=== PATIENT | male | born 1940 | race Caucasian/White ===

== ENCOUNTER 2016-08-28 10:40 | Day surgery (SDC) | payer MEDICARE, BC ==
[~2016-08-28 10:40] MED LIST: GENTAMICIN SULFATE 80 MG in DEXTROSE 5 % IN WATER 100 ML IV PRN; RINGERS SOLUTION,LACTATED 1,000 ML IV PRN; metroNIDAZOLE/SODIUM CHLORIDE 500 MG/100 ML BAG IV PRN
--- OUTSIDE RECORDS SUMMARY | 2016-08-28 10:47 | XMS REPORT | Summary of Care ---
:1940 Author Organization [facility] Care Team Providers Name Role Phone Anna Candelaria Primary Care Physician Encounter Date(s): 07/24/16 - 07/24/[address] [id number] [place] Discharge Disposition: Discharged to Home or Self Care Attending Physician: Anna Candelaria DNP Admitting Physician: Anna Candelaria DNP Vital Signs No data available for this section Problem List Condition Effective Dates Status Health Status Informant Hypertension(Confirmed) Active Colonic Polyps(Confirmed) Active Hyperparathyroidism(Confirmed) Active Hypercholesterolemia(Confirmed) Active Allergies, Adverse Reactions, Alerts No Known Medication Allergies Medications ALPRAZolam 0.5 mg oral tablet 1 tab(s), Oral, BID, PRN for anxiety, 5 Refill(s) Start Date: 07/13/13 Stop Date: 08/16/13 Status: DiscontinuedALPRAZolam 0.5 mg oral tablet 1 tab(s), Oral, BID, PRN for anxiety, X 30 days, # 60 tab(s), 0 Refill(s), Start Date: 06/15/14 9:14:33 CDT, 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) Start Date: 06/15/14 Stop Date: 07/13/14 Status: CompletedALPRAZolam 0.5 mg oral tablet 1 tab(s), Oral, BID, PRN for anxiety, # 60 tab(s), 1 Refill(s), Start Date: 08/22 9:41:46 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, 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) Start Date: 02/14/14 Stop Date: 04/11/14 Status: CompletedALPRAZolam 0.5 mg oral tablet 1 tab(s), Oral, BID, PRN for anxiety, # 60 tab(s), 0 Refill(s), Start Date: 06/22 10:16:33 CDT, 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) Start Date: 07/13/14 Stop Date: 07/24/14 Status: DiscontinuedALPRAZolam 0.5 mg oral tablet 1 tab(s), Oral, BID, PRN for anxiety, X 30 days, # 60 tab(s), 5 Refill(s), Start Date: 07/26/15 7:22:37 CDT, 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) Start Date: 07/26/15 Stop Date: 01/28/16 Status: CompletedALPRAZolam 0.5 mg oral tablet 1 tab(s), Oral, BID, PRN for anxiety, X 30 days, # 60 tab(s), 5 Refill(s), Start Date: 02/07/15 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, 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) Start Date: 02/07/15 Stop Date: 07/26/15 Status: CompletedALPRAZolam 0.5 mg oral tablet 1 tab(s), Oral, BID, PRN for anxiety, # 60 tab(s), 1 Refill(s), 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) Start Date: 08/16/13 Stop Date: 10/17/13 Status: CompletedALPRAZolam 0.5 mg oral tablet 1 tab(s), Oral, BID, PRN for anxiety, # 60 tab(s), 1 Refill(s), Start Date: 10/22 9:31:27 CDT, 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) Start Date: 10/17/13 Stop Date: 12/14/13 Status: CompletedALPRAZolam 0.5 mg oral tablet 1 tab(s), Oral, BID, PRN for anxiety, # 60 tab(s), 5 Refill(s), 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, 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) Start Date: 01/28/16 Stop Date: 07/26/16 Status: OrderedALPRAZolam 0.5 mg oral tablet 1 tab(s), Oral, BID, PRN for anxiety, X 30 days, # 60 tab(s), 1 Refill(s), Start Date: 04/11/14 15:59:12 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, 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) Start Date: 04/11/14 Stop Date: 06/15/14 Status: CompletedALPRAZolam 0.5 mg oral tablet 1 tab(s), Oral, BID, PRN for anxiety, # 60 tab(s), 1 Refill(s), Start Date: 07/22 14:26:02 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, 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) Start Date: 12/14/13 Stop Date: 02/14/14 Status: CompletedALPRAZolam 0.5 mg oral tablet 1 tab(s), Oral, BID, PRN for anxiety, X 30 days, # 60 tab(s), 5 Refill(s), Start Date: 07/24/14 10:27:35 CDT Start Date: 07/24/14 Stop Date: 02/07/15 Status: CompletedamLODIPine 10 mg oral tablet 1 tab(s), Oral, Daily, # 90 tab(s), 3 Refill(s), Start Date: 07/24/14 10:24:43 CDT, Pharmacy: [facility] Start Date: 07/24/14 Stop Date: 07/26/15 Status: CompletedamLODIPine 10 mg oral tablet 1 tab(s), Oral, Daily, # 90 tab(s), 3 Refill(s), Pharmacy: [facility] Start Date: 07/17/13 Stop Date: 07/24/14 Status: DiscontinuedamLODIPine 10 mg oral tablet 1 tab(s), Oral, Daily, # 90 tab(s), 3 Refill(s), Start Date: 07/26/15 7:16:37 CDT, Pharmacy: [facility] Start Date: 07/26/15 Stop Date: 07/20/16 Status: OrderedamLODIPine 10 mg oral tablet 1 tab(s), Oral, Daily, # 30 tab(s), 0 Refill(s) Start Date: 07/13/13 Stop Date: 07/17/13 Status: Discontinuedbenazepril 20 mg oral tablet 2 tab(s), Oral, Daily, # 30 tab(s), 0 Refill(s) Start Date: 07/13/13 Stop Date: 07/17/13 Status: Discontinuedbenazepril 40 mg oral tablet 1 tab(s), Oral, Daily, X 90 days, # 90 tab(s), 3 Refill(s), Start Date: 10:24:56 CDT, Pharmacy: [place] [id number] Start Date: 07/24/14 Stop Date: 07/26/15 Status: Completedbenazepril 40 mg oral tablet 1 tab(s), Oral, Daily, # 90 tab(s), 3 Refill(s), Start Date: 07/17/13 11:11:00 CDT, Pharmacy: [place] [id number] Start Date: 07/17/13 Stop Date: 02/26/14 Status: Completedbenazepril 40 mg oral tablet 1 tab(s), Oral, Daily, # 90 tab(s), 3 Refill(s), Start Date: 07/26/15 7:17:09 CDT, Pharmacy: [place] [address] Start Date: 07/26/15 Stop Date: 07/20/16 Status: Orderedbenazepril 40 mg oral tablet 1 tab(s), Oral, Daily, # 90 tab(s), 3 Refill(s), Start Date: 02/26/14 9:32:13 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, Pharmacy: [place] [id number] Start Date: 02/26/14 Stop Date: 07/24/14 Status: DiscontinuedFreestyle Lite Test Strips See Instructions, check blood sugar twice daily dx: R73.01, # 100 EA, 5 Refill(s), Pharmacy: [place] [id number], Supply Special Instructions: check blood sugar twice daily dx: R73.01 Start Date: 07/26/15 Status: OrderedFreestyle Lite Test Strips 100 EA, Subcutaneous, Daily, # 1 boxes, 0 Refill(s), Supply Start Date: 07/26/15 Stop Date: 07/26/15 Status: DiscontinuedFreestyle Test Strips See Instructions, use as directed to check blood sugar 2 times daily DX: R73.01 (non-insulin), # 100 EA, 5 Refill(s), Pharmacy: [place] [address], Supply Special Instructions: use as directed to check blood sugar 2 times daily DX: R73.01 (non-insulin) Start Date: 07/26/15 Status: OrderedmetFORMIN 500 mg oral tablet 1 tab(s), Oral, BID, # 180 tab(s), 3 Refill(s), Start Date: 07/24/14 10:25:20 CDT, Pharmacy: [place] [address] Start Date: 07/24/14 Stop Date: 07/26/15 Status: CompletedmetFORMIN 500 mg oral tablet 1 tab(s), Oral, BID, # 180 tab(s), 3 Refill(s), Pharmacy: [place] [address] Start Date: 07/17/13 Stop Date: 07/24/14 Status: DiscontinuedmetFORMIN 500 mg oral tablet 1 tab(s), Oral, BID, X 90 days, # 180 tab(s), 3 Refill(s), Start Date: 07/26/15 7:17:34 CDT, Pharmacy: [place] [address] Start Date: 07/26/15 Stop Date: 12/10/15 Status: CompletedmetFORMIN 500 mg oral tablet 1 tab(s), Oral, BID, # 180 tab(s), 2 Refill(s), Pharmacy: [place] [address] Start Date: 06/03/16 Stop Date: 09/01/16 Status: OrderedmetFORMIN 500 mg oral tablet 1 tab(s), Oral, BID, # 180 tab(s), 0 Refill(s) Start Date: 07/13/13 Stop Date: 07/17/13 Status: DiscontinuedmetFORMIN 500 mg oral tablet 1 tab(s), Oral, BID, X 90 days, # 180 tab(s), 0 Refill(s), Start Date: 12/10/15 8:57:26 CDT, Pharmacy: [place] [address] Start Date: 12/10/15 Stop Date: 03/04/16 Status: CompletedmetFORMIN 500 mg oral tablet 1 tab(s), Oral, BID, # 180 tab(s), 0 Refill(s), Start Date: 03/04/16 15:27:57 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, Pharmacy: [place] [address] Start Date: 03/04/16 Stop Date: 06/03/16 Status: Completedmetoprolol tartrate 50 mg oral tablet 1 tab(s), Oral, BID, With meals, # 180 tab(s), 3 Refill(s), Pharmacy: [place] [address] Special Instructions: With meals Start Date: 07/17/13 Stop Date: 07/24/14 Status: Discontinuedmetoprolol tartrate 50 mg oral tablet 1 tab(s), Oral, BID, With meals, # 180 tab(s), 3 Refill(s), Start Date: 7:18:01 CDT, Pharmacy: [place] [address] Special Instructions: With meals Start Date: 07/26/15 Stop Date: 07/20/16 Status: Orderedmetoprolol tartrate 50 mg oral tablet 2 tab(s), Oral, BID, With meals, # 180 tab(s), 0 Refill(s) Special Instructions: With meals Start Date: 07/13/13 Stop Date: 07/17/13 Status: Discontinuedmetoprolol tartrate 50 mg oral tablet 1 tab(s), Oral, BID, With meals, # 180 tab(s), 3 Refill(s), Start Date: 10:25:50 CDT, Pharmacy: [place] [address] Special Instructions: With meals Start Date: 07/24/14 Stop Date: 07/26/15 Status: CompletedPepcid 20 mg oral tablet 1 tab(s), Oral, BID, # 180 tab(s), 0 Refill(s), Start Date: 07/24/14 10:28:00 CDT, other reason (Rx) Start Date: 07/24/14 Status: Orderedsimvastatin 40 mg oral tablet 1 tab(s), Oral, HS, # 90 tab(s), 3 Refill(s), Pharmacy: [facility] Start Date: 07/17/13 Stop Date: 07/24/14 Status: Discontinuedsimvastatin 40 mg oral tablet 1 tab(s), Oral, HS, # 90 tab(s), 3 Refill(s), Start Date: 07/26/15 7:18:31 CDT, Pharmacy: [facility] Start Date: 07/26/15 Stop Date: 07/20/16 Status: Orderedsimvastatin 40 mg oral tablet 1 tab(s), Oral, HS, # 30 tab(s), 0 Refill(s) Start Date: 07/13/13 Stop Date: 07/17/13 Status: Discontinuedsimvastatin 40 mg oral tablet 1 tab(s), Oral, HS, # 90 tab(s), 3 Refill(s), Start Date: 07/24/14 10:25:58 CDT , Pharmacy: [place] [address] Start Date: 07/24/14 Stop Date: 07/26/15 Status: Completedterazosin 10 mg oral capsule 1 cap(s), Oral, HS, # 90 cap(s), 3 Refill(s), Start Date: 07/17/13 11:11:00 CDT , Pharmacy: [place] [address] Start Date: 07/17/13 Stop Date: 07/13/14 Status: Completedterazosin 10 mg oral capsule 1 cap(s), Oral, HS, # 90 cap(s), 3 Refill(s), Start Date: 07/26/15 7:18:55 CDT, Pharmacy: [place] [address] Start Date: 07/26/15 Stop Date: 07/20/16 Status: Orderedterazosin 10 mg oral capsule 1 cap(s), Oral, HS, # 90 cap(s), 3 Refill(s), Start Date: 07/13/14 10:00:35 CDT , Pharmacy: [place] [address] Start Date: 07/13/14 Stop Date: 07/24/14 Status: Discontinuedterazosin 10 mg oral capsule 1 cap(s), Oral, HS, X 90 days, # 90 cap(s), 3 Refill(s), Start Date: 07/13/14 10 :00:07 CDT Start Date: 07/13/14 Stop Date: 07/13/14 Status: Completedterazosin 10 mg oral capsule 1 cap(s), Oral, HS, # 30 cap(s), 0 Refill(s) Start Date: 07/13/13 Stop Date: 07/17/13 Status: Discontinuedterazosin 10 mg oral capsule 1 cap(s), Oral, HS, X 90 days, # 90 cap(s), 3 Refill(s), Start Date: 07/24/14 10 :26:14 CDT, Pharmacy: [place] [id number] Start Date: 07/24/14 Stop Date: 07/26/15 Status: Completed Results Patient Viewable Results Most recent to oldest [Reference Range]: 1 WBC [4.8-10.8 thou/mm3] 5.7 thou/mm3 (07/24/16 7:35 AM) RBC [4.60-6.00 Mil/mm3] 4.33 Mil/mm3 *LOW* (07/24/16 7:35 AM) Hgb [14.0-18.0 g/dL] 13.6 g/dL *LOW* (07/24/16 7:35 AM) Hct [42.0-52.0 %] 40.2 % *LOW* (07/24/16 7:35 AM) MCV [80.0-94.0 fL] 92.8 fL (07/24/16 7:35 AM) MCH [25.0-38.0 pg/cell] 31.4 pg/cell (07/24/16 7:35 AM) MCHC [31.0-37.0 g/dL] 33.8 g/dL (07/24/16 7:35 AM) RDW [1.0-48.0 fL] 44.7 fL (07/24/16 7:35 AM) Platelet [130-400 thou/mm3] 165 thou/mm3 (07/24/16 7:35 AM) Neutrophils % Auto [50.0-75.0 %] 65.6 % (07/24/16 7:35 AM) Immature Granulocyte Auto [0.1-2.0 %] 0.3 % (07/24/16 7:35 AM) Lymphocytes % Auto [15.0-41.0 %] 20.7 % (07/24/16 7:35 AM) Monocytes % Auto [2.0-10.0 %] 9.8 % (07/24/16 7:35 AM) Eosinophils % Auto [0.0-6.0 %] 3.3 % (07/24/16 7:35 AM) Basophil % Auto [0.0-1.0 %] 0.3 % (07/24/16 7:35 AM) Neutrophils Absolute [1.5-5.9 thou/mm3] 3.8 thou/mm3 (07/24/16 7:35 AM) Immature Gran Absolute [0.01-0.03 thou/mm3] 0.02 thou/mm3 (07/24/16 7:35 AM) Lymphocytes Absolute [1.5-4.0 thou/mm3] 1.2 thou/mm3 *LOW* (07/24/16 7:35 AM) Monocytes Absolute [0.0-0.9 thou/mm3] 0.6 thou/mm3 (07/24/16 7:35 AM) Eosinophil Absolute [0.0-0.7 thou/mm3] 0.2 thou/mm3 (07/24/16 7:35 AM) Basophil Absolute [0.0-0.2 thou/mm3] 0.0 thou/mm3 (07/24/16 7:35 AM) Sodium Lvl [135-144 mEq/L] 144 mEq/L (07/24/16 7:35 AM) Potassium Lvl [3.3-4.8 mEq/L] 4.9 mEq/L *HI* (07/24/16 7:35 AM) Chloride Lvl [98-107 mEq/L] 106 mEq/L (07/24/16 7:35 AM) Bicarbonate Lvl [22-30 mmol/L] 28 mmol/L (07/24/16 7:35 AM) Anion Gap [10.0-20.0] 14.9 (07/24/16 7:35 AM) Glucose Lvl [70-108 mg/dL] 132 mg/dL *HI* (07/24/16 7:35 AM) BUN [7-21 mg/dL] 18 mg/dL (07/24/16 7:35 AM) Creatinine Lvl [0.50-1.20 mg/dL] 1.20 mg/dL (07/24/16 7:35 AM) BUN/Creat Ratio 15.0 *NA* (07/24/16 7:35 AM) eGFR AA [>=60] >60 (07/24/16 7:35 AM) eGFR LUIS [>=60] 59 *LOW* (07/24/16 7:35 AM) Calcium Lvl [8.6-10.2 mg/dL] 9.6 mg/dL (07/24/16 7:35 AM) Total Protein [6.4-8.3 g/dL] 6.6 g/dL (07/24/16 7:35 AM) Albumin Lvl [3.5-5.2 g/dL] 4.2 g/dL (07/24/16 7:35 AM) Globulin 2.4 *NA* (07/24/16 7:35 AM) A/G Ratio [0.9-1.8] 1.8 (07/24/16 7:35 AM) Bilirubin Total [0.1-1.0 mg/dL] 0.6 mg/dL (07/24/16 7:35 AM) Alkaline Phosphatase [39-129 unit/L] 82 unit/L (07/24/16 7:35 AM) AST [0-39 unit/L] 17 unit/L (07/24/16 7:35 AM) ALT [0-40 unit/L] 16 unit/L (07/24/16 7:35 AM) Glycated Hemoglobin [4.8-6.0 %] 6.1 % *HI* (07/24/16 7:35 AM) Estimated Average Glucose 128 mg/dL *NA* (07/24/16 7:35 AM) Cholesterol Total [0-200 mg/dL] 124 mg/dL (07/24/16 7:35 AM) Triglyceride [0-199 mg/dL] 111 mg/dL (07/24/16 7:35 AM) HDL Cholesterol [40-100 mg/dL] 47 mg/dL (07/24/16 7:35 AM) LDL Cholesterol (Direct) [0-129 mg/dL] 65 mg/dL (07/24/16 7:35 AM) Non HDL Cholesterol [0-159 mg/dL] 77 mg/dL (07/24/16 7:35 AM) Estimated Creatinine Clearance 78.91 mL/min (07/24/16 5:06 PM) Immunizations No data available for this section Procedures Procedure Date Related Diagnosis Body Site Thyroidectomy 08/1994 Cyst Removal1 12/1993 Colonoscopy2 [id number] 1995, June 2001, July 2006, July 2009 Social History No data available for this section Assessment and Plan No data available for this section
--- OUTSIDE RECORDS SUMMARY | 2016-08-28 10:47 | XMS REPORT | Summary of Care ---
:1940 Author Organization [facility] Address [facility] [place] [address]- Care Team Providers Name Role Phone Albert Barreto Primary Care Physician Encounter Date(s): 07/18/15 - 07/18/[address] [address] Final: Essential (primary) hypertension Final: Primary hyperparathyroidism Final: Pure hypercholesterolemia Discharge Disposition: Discharged to Home or Self Care Attending Physician: Albert Barreto MD Admitting Physician: Albert Barreto MD Vital Signs No data available for this section Problem List Condition Effective Dates Status Health Status Informant Hypercholesterolemia(Confirmed) Active Hypertension(Confirmed) Active Colonic Polyps(Confirmed) Active Hyperparathyroidism(Confirmed) Active Allergies, Adverse Reactions, Alerts No Known [...] tab(s), 1 Refill(s), Start Date: 08/22 9:41:46 [employer], 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) Start Date: 02/14/14 Stop Date: 04/11/14 Status: CompletedALPRAZolam 0.5 mg oral tablet 1 tab(s), Oral, BID, PRN for anxiety, # 60 tab(s), 0 Refill(s), Start Date: 06/22 10:16:33 CDT, 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) Start Date: 07/13/14 Stop Date: 07/24/14 Status: DiscontinuedALPRAZolam 0.5 mg oral tablet 1 tab(s), Oral, BID, PRN for anxiety, # 60 tab(s), 5 Refill(s), Start Date: 7:22:37 CDT, 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) Start Date: 07/26/15 Stop Date: 01/22/16 Status: OrderedALPRAZolam 0.5 mg oral tablet 1 tab(s), Oral, BID, PRN for anxiety, X 30 days, # 60 tab(s), 5 Refill(s), Start Date: 02/07/15 10:33:50 [employer], 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) Start Date: 02/07/15 [...] tab(s), 1 Refill(s), Start Date: 04/11/14 15:59:12 [employer], 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) Start Date: 04/11/14 Stop Date: 06/15/14 Status: CompletedALPRAZolam 0.5 mg oral tablet 1 tab(s), Oral, BID, PRN for anxiety, # 60 tab(s), 1 Refill(s), Start Date: 07/22 14:26:02 [employer], 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) Start Date: 12/14/13 Stop Date: 02/14/14 Status: CompletedALPRAZolam 0.5 mg oral tablet 1 tab(s), Oral, BID, PRN for anxiety, X 30 days, # 60 tab(s), 5 Refill(s), Start Date: 07/24/14 10:27:35 CDT Start Date: 07/24/14 Stop Date: 02/07/15 Status: CompletedamLODIPine 10 mg oral tablet 1 tab(s), Oral, Daily, # 90 tab(s), 3 Refill(s), Start Date: 07/24/14 10:24:43 CDT, Pharmacy: [facility] Start Date: 07/24/14 Stop Date: 07/26/15 Status: CompletedamLODIPine 10 mg oral tablet 1 tab(s), Oral, Daily, # 90 tab(s), 3 Refill(s), Pharmacy: [facility] Start Date: 07/17/13 Stop Date: 07/24/14 Status: DiscontinuedamLODIPine 10 mg oral tablet 1 tab(s), Oral, Daily, # 90 tab(s), 3 Refill(s), Start Date: 07/26/15 7:16:37 CDT, Pharmacy: [facility] Start Date: 07/26/15 Stop Date: 07/20/16 Status: [...] 3 Refill(s), Start Date: 10:24:56 CDT, Pharmacy: [facility] Start Date: 07/24/14 Stop Date: 07/26/15 Status: Completedbenazepril 40 mg oral tablet 1 tab(s), Oral, Daily, # 90 tab(s), 3 Refill(s), Start Date: 07/17/13 11:11:00 CDT, Pharmacy: [facility] [id number] Start Date: 07/17/13 Stop Date: 02/26/14 Status: Completedbenazepril 40 mg oral tablet 1 tab(s), Oral, Daily, # 90 tab(s), 3 Refill(s), Start Date: 07/26/15 7:17:09 CDT, Pharmacy: [facility] [id number] Start Date: 07/26/15 Stop Date: 07/20/16 Status: Orderedbenazepril 40 mg oral tablet 1 tab(s), Oral, Daily, # 90 tab(s), 3 Refill(s), Start Date: 02/26/14 9:32:13 [employer], Pharmacy: [facility] [id number] Start Date: 02/26/14 Stop Date: 07/24/14 Status: DiscontinuedFreestyle Lite Test Strips See Instructions, check blood sugar twice daily dx: R73.01, # 100 EA, 5 Refill(s), Pharmacy: [facility] [id number], Supply Special Instructions: check blood sugar twice daily dx: R73.01 Start Date: 07/26/15 Status: OrderedFreestyle Lite Test Strips 100 EA, Subcutaneous, Daily, # 1 boxes, 0 Refill(s), Supply Start Date: 07/26/15 Stop Date: 07/26/15 Status: DiscontinuedFreestyle Test Strips See Instructions, use as directed to check blood sugar 2 times daily DX: R73.01 (non-insulin), # 100 EA, 5 Refill(s), Pharmacy: [facility] [id number], Supply Special Instructions: use as directed to check blood sugar 2 times daily DX: R73.01 (non-insulin) Start Date: 07/26/15 Status: OrderedmetFORMIN 500 mg oral tablet 1 tab(s), Oral, BID, # 180 tab(s), 3 Refill(s), Start Date: 07/24/14 10:25:20 CDT, Pharmacy: [facility] [id number] Start Date: 07/24/14 Stop Date: 07/26/15 Status: CompletedmetFORMIN 500 mg oral tablet 1 tab(s), Oral, BID, # 180 tab(s), 3 Refill(s), Pharmacy: [facility] [id number] Start Date: 07/17/13 Stop Date: 07/24/14 Status: DiscontinuedmetFORMIN 500 mg oral tablet 1 tab(s), Oral, BID, # 180 tab(s), 3 Refill(s), Start Date: 07/26/15 7:17:34 CDT , Pharmacy: [facility] [id number] Start Date: 07/26/15 Stop Date: 07/20/16 Status: OrderedmetFORMIN 500 mg oral tablet 1 tab(s), Oral, BID, # 180 tab(s), 0 Refill(s) Start Date: 07/13/13 Stop Date: 07/17/13 Status: Discontinuedmetoprolol tartrate 50 mg oral tablet 1 tab(s), Oral, BID, With meals, # 180 tab(s), 3 Refill(s), Pharmacy: [facility] [id number] Special Instructions: With meals Start Date: 07/17/13 Stop Date: 07/24/14 Status: Discontinuedmetoprolol tartrate 50 mg oral tablet 1 tab(s), Oral, BID, With meals, # 180 tab(s), 3 Refill(s), Start Date: 7:18:01 CDT, Pharmacy: [facility] [id number] Special Instructions: With meals Start Date: 07/26/15 Stop Date: 07/20/16 Status: Orderedmetoprolol tartrate 50 mg oral tablet 2 tab(s), Oral, BID, With meals, # 180 tab(s), 0 Refill(s) Special Instructions: With meals Start Date: 07/13/13 Stop Date: 07/17/13 Status: Discontinuedmetoprolol tartrate 50 mg oral tablet 1 tab(s), Oral, BID, With meals, # 180 tab(s), 3 Refill(s), Start Date: 10:25:50 CDT, Pharmacy: [facility] Special Instructions: With meals Start Date: 07/24/14 Stop Date: 07/26/15 Status: CompletedPepcid 20 mg oral tablet 1 tab(s), Oral, BID, # 180 tab(s), 0 Refill(s), Start Date: 07/24/14 10:28:00 CDT, other reason (Rx) Start Date: 07/24/14 Status: Orderedsimvastatin 40 mg oral tablet 1 tab(s), Oral, HS, # 90 tab(s), 3 Refill(s), Pharmacy: [facility] [id number] Start Date: 07/17/13 Stop Date: 07/24/14 Status: Discontinuedsimvastatin 40 mg oral tablet 1 tab(s), Oral, HS, # 90 tab(s), 3 Refill(s), Start Date: 07/26/15 7:18:31 CDT, Pharmacy: [facility] [id number] Start Date: 07/26/15 Stop Date: 07/20/16 Status: Orderedsimvastatin 40 mg oral tablet 1 tab(s), Oral, HS, # 30 tab(s), 0 Refill(s) Start Date: 07/13/13 Stop Date: 07/17/13 Status: Discontinuedsimvastatin 40 mg oral tablet 1 tab(s), Oral, HS, # 90 tab(s), 3 Refill(s), Start Date: 07/24/14 10:25:58 CDT , Pharmacy: [facility] [id number] Start Date: 07/24/14 Stop Date: 07/26/15 Status: Completedterazosin 10 mg oral capsule 1 cap(s), Oral, HS, # 90 cap(s), 3 Refill(s), Start Date: 07/17/13 11:11:00 CDT , Pharmacy: [facility] [id number] Start Date: 07/17/13 Stop Date: 07/13/14 Status: Completedterazosin 10 mg oral capsule 1 cap(s), Oral, HS, # 90 cap(s), 3 Refill(s), Start Date: 07/26/15 7:18:55 CDT, Pharmacy: [facility] [id number] Start Date: 07/26/15 Stop Date: 07/20/16 Status: Orderedterazosin 10 mg oral capsule 1 cap(s), Oral, HS, # 90 cap(s), 3 Refill(s), Start Date: 07/13/14 10:00:35 CDT , Pharmacy: [facility] [id number] Start Date: 07/13/14 Stop Date: 07/24/14 Status: [...] Start Date: 07/24/14 10 :26:14 CDT, Pharmacy: [id number] Start Date: 07/24/14 Stop Date: 07/26/15 Status: Completed Results Patient Viewable Results Most recent to oldest [Reference Range]: 1 WBC [4.8-10.8 thou/mm3] 5.6 thou/mm3 (07/18/15 8:05 AM) RBC [4.60-6.00 Mil/mm3] 4.36 Mil/mm3 *LOW* (07/18/15 8:05 AM) Hgb [14.0-18.0 g/dL] 13.5 g/dL *LOW* (07/18/15 8:05 AM) Hct [42.0-52.0 %] 40.6 % *LOW* (07/18/15 8:05 AM) MCV [80.0-94.0 fL] 93.1 fL (07/18/15 8:05 AM) MCH [25.0-38.0 pg/cell] 31.0 pg/cell (07/18/15 8:05 AM) MCHC [31.0-37.0 g/dL] 33.3 g/dL (07/18/15 8:05 AM) RDW [1.0-48.0 fL] 44.9 fL (07/18/15 8:05 AM) Platelet [130-400 thou/mm3] 164 thou/mm3 (07/18/15 8:05 AM) Neutrophils % Auto [50.0-75.0 %] 62.0 % (07/18/15 8:05 AM) Immature Granulocyte Auto [0.1-2.0 %] 0.4 % (07/18/15 8:05 AM) Lymphocytes % Auto [15.0-41.0 %] 22.6 % (07/18/15 8:05 AM) Monocytes % Auto [2.0-10.0 %] 10.4 % *HI* (07/18/15 8:05 AM) Eosinophils % Auto [0.0-6.0 %] 4.1 % (07/18/15 8:05 AM) Basophil % Auto [0.0-1.0 %] 0.5 % (07/18/15 8:05 AM) Neutrophils Absolute [1.5-5.9 thou/mm3] 3.4 thou/mm3 (07/18/15 8:05 AM) Immature Gran Absolute [0.01-0.03 thou/mm3] 0.02 thou/mm3 (07/18/15 8:05 AM) Lymphocytes Absolute [1.5-4.0 thou/mm3] 1.3 thou/mm3 *LOW* (07/18/15 8:05 AM) Monocytes Absolute [0.0-0.9 thou/mm3] 0.6 thou/mm3 (07/18/15 8:05 AM) Eosinophil Absolute [0.0-0.7 thou/mm3] 0.2 thou/mm3 (07/18/15 8:05 AM) Basophil Absolute [0.0-0.2 thou/mm3] 0.0 thou/mm3 (07/18/15 8:05 AM) Sodium Lvl [135-144 mEq/L] 142 mEq/L (07/18/15 8:05 AM) Potassium Lvl [3.3-4.8 mEq/L] 4.9 mEq/L *HI* (07/18/15 8:05 AM) Chloride Lvl [98-107 mEq/L] 104 mEq/L (07/18/15 8:05 AM) Bicarbonate Lvl [22-30 mmol/L] 28 mmol/L (07/18/15 8:05 AM) Anion Gap [10.0-20.0] 14.9 (07/18/15 8:05 AM) Glucose Lvl [70-108 mg/dL] 122 mg/dL *HI* (07/18/15 8:05 AM) BUN [7-21 mg/dL] 21 mg/dL (07/18/15 8:05 AM) Creatinine Lvl [0.50-1.20 mg/dL] 1.17 mg/dL (07/18/15 8:05 AM) BUN/Creat Ratio 17.9 *NA* (07/18/15 8:05 AM) eGFR AA [>=60] >60 (07/18/15 8:05 AM) eGFR LUIS [>=60] >60 (07/18/15 8:05 AM) Calcium Lvl [8.6-10.2 mg/dL] 9.3 mg/dL (07/18/15 8:05 AM) Total Protein [6.4-8.3 g/dL] 6.8 g/dL (07/18/15 8:05 AM) Albumin Lvl [3.5-5.2 g/dL] 4.4 g/dL (07/18/15 8:05 AM) Globulin 2.4 *NA* (07/18/15 8:05 AM) A/G Ratio [0.9-1.8] 1.8 (07/18/15 8:05 AM) Bilirubin Total [0.1-1.0 mg/dL] 0.7 mg/dL (07/18/15 8:05 AM) Alkaline Phosphatase [39-129 unit/L] 76 unit/L (07/18/15 8:05 AM) AST [0-39 unit/L] 17 unit/L (07/18/15 8:05 AM) ALT [0-40 unit/L] 16 unit/L (07/18/15 8:05 AM) Glycated Hemoglobin [4.8-6.0 %] 6.2 % *HI* (07/18/15 8:05 AM) Estimated Average Glucose 131 mg/dL *NA* (07/18/15 8:05 AM) Cholesterol Total [0-200 mg/dL] 126 mg/dL (07/18/15 8:05 AM) Triglyceride [0-199 mg/dL] 87 mg/dL (07/18/15 8:05 AM) HDL Cholesterol [40-100 mg/dL] 52 mg/dL (07/18/15 8:05 AM) LDL Cholesterol (Direct) [0-129 mg/dL] 65 mg/dL (07/18/15 8:05 AM) Non HDL Cholesterol [0-159 mg/dL] 74 mg/dL (07/18/15 8:05 AM) TSH [0.50-3.00 mIU/L] 1.18 mIU/L (07/18/15 8:05 AM) PSA [0.0-4.0 ng/mL] 7.2 ng/mL *HI* (07/18/15 8:05 AM) Estimated Creatinine Clearance 81.90 mL/min (07/18/15 5:01 PM) Immunizations No data available for this section Procedures Procedure Date Related Diagnosis Body Site Thyroidectomy 08/1994 Cyst Removal1 12/1993 Colonoscopy2 [id number] 1995, June 2001, July 2006, July 2009 Social History No data available for this section Assessment and Plan No data available for this section
--- OUTSIDE RECORDS SUMMARY | 2016-08-28 10:47 | XMS REPORT | Summary of Care ---
:1940 Author Organization [facility] Address [address] [place] [address] Care Team Providers Name Role Phone Anna Candelaria Primary Care Physician Encounter Date(s): 08/14/16 - 08/14/16 [facility], [address] [place], [place] [address] Discharge Disposition: 01 Discharged to Home or Self Care Attending Physician: Joel Lange MD Referring Physician: Anna Candelaria DNP Vital Signs Most recent to oldest [Reference Range]: 1 Temperature Temporal Artery [36.0-38.0 DegC] 36.6 DegC (08/14/16 9:33 AM) Blood Pressure [90-130/60-90 mmHg] 160/94mmHg *HI* (08/14/16 9:33 AM) Mean Arterial Pressure, Cuff 116 mmHg (08/14/16 9:33 AM) Most recent to oldest [Reference Range]: 1 Weight Dosing 130.60 kg1 (08/14/16 9:38 AM) Weight Measured 130.6 kg (08/14/16 9:33 AM) 1Result Comment: This result was because the dosing weight was either not entered or it is>30 days old. 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[employer], 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) Start Date: 02/14/14 [...] tab(s), 5 Refill(s), Start Date: 02/07/15 10:33:50 [employer], 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) Start Date: 02/07/15 [...] # 60 tab(s), 5 Refill(s), Start Date: 01/28/16 13:29:20 [employer]IT[employer], 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) Start Date: 01/28/16 Stop Date: 07/29/16 Status: CompletedALPRAZolam 0.5 mg oral tablet 1 tab(s), Oral, BID, PRN for anxiety, # 60 tab(s), 5 Refill(s), Start Date: 8:42:31 CDT, 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) Start Date: 07/29/16 Stop Date: 01/25/17 Status: OrderedALPRAZolam 0.5 mg oral tablet 1 tab(s), Oral, BID, PRN for anxiety, X 30 days, # 60 tab(s), 1 Refill(s), Start Date: 04/11/14 15:59:12 [employer], 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) Start Date: 04/11/14 Stop Date: 06/15/14 Status: CompletedALPRAZolam 0.5 mg oral tablet 1 tab(s), Oral, BID, PRN for anxiety, # 60 tab(s), 1 Refill(s), Start Date: 07/22 14:26:02 MARITIME P[employer], 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) Start Date: 12/14/13 Stop Date: 02/14/14 Status: CompletedALPRAZolam 0.5 mg oral tablet 1 tab(s), Oral, BID, PRN for anxiety, X 30 days, # 60 tab(s), 5 Refill(s), Start Date: 07/24/14 10:27:35 CDT Start Date: 07/24/14 Stop Date: 02/07/15 Status: CompletedamLODIPine 10 mg oral tablet 1 tab(s), Oral, Daily, # 90 tab(s), 3 Refill(s), Start Date: 07/24/14 10:24:43 CDT, Pharmacy: [facility] [id number] Start Date: 07/24/14 Stop Date: 07/26/15 Status: CompletedamLODIPine 10 mg oral tablet 1 tab(s), Oral, Daily, # 90 tab(s), 3 Refill(s), Pharmacy: [facility] [id number] Start Date: 07/17/13 Stop Date: 07/24/14 Status: DiscontinuedamLODIPine 10 mg oral tablet 1 tab(s), Oral, Daily, X 90 days, # 90 tab(s), 3 Refill(s), Start Date: 7:16:37 CDT, Pharmacy: [facility] [id number] Start Date: 07/26/15 Stop Date: 07/29/16 Status: CompletedamLODIPine 10 mg oral tablet 1 tab(s), Oral, Daily, # 90 tab(s), 3 Refill(s), Start Date: 07/29/16 8:16:04 CDT, Pharmacy: [facility] [id number] Start Date: 07/29/16 Stop Date: 07/24/17 Status: OrderedamLODIPine 10 mg oral tablet 1 [...] 3 Refill(s), Start Date: 10:24:56 CDT, Pharmacy: [facility] [id number] Start Date: 07/24/14 Stop Date: 07/26/15 Status: Completedbenazepril 40 mg oral tablet 1 tab(s), Oral, Daily, # 90 tab(s), 3 Refill(s), Start Date: 07/17/13 11:11:00 CDT, Pharmacy: [facility] [id number] Start Date: 07/17/13 Stop Date: 02/26/14 Status: Completedbenazepril 40 mg oral tablet 1 tab(s), Oral, Daily, X 90 days, # 90 tab(s), 3 Refill(s), Start Date: 7:17:09 CDT, Pharmacy: [facility] [id number] Start Date: 07/26/15 Stop Date: 07/29/16 Status: Completedbenazepril 40 mg oral tablet 1 tab(s), Oral, Daily, # 90 tab(s), 3 Refill(s), Start Date: 02/26/14 9:32:13 MARITIME PILOT, Pharmacy: [facility] [id number] Start Date: 02/26/14 Stop Date: 07/24/14 Status: Discontinuedbenazepril 40 mg oral tablet 1 tab(s), Oral, Daily, # 90 tab(s), 3 Refill(s), Start Date: 07/29/16 8:16:05 CDT, Pharmacy: [facility] [id number] Start Date: 07/29/16 Stop Date: 07/24/17 Status: OrderedCipro 500 mg oral tablet 1 tab(s), Oral, q12hr interval, Start Cipro 1 day prior to procedure, # 6 tab(s) , 0 Refill(s), Start Date: 08/14/16 9:57:00 CDT, Pharmacy: [facility] [id number] Special Instructions: Start Cipro 1 day prior to procedure Start Date: 08/14/16 Stop Date: 08/17/16 Status: OrderedFreestyle Lite Test Strips See Instructions, check blood sugar twice daily dx: R73.01, # 100 EA, 5 Refill(s), Pharmacy: [facility] [id number], Supply Special Instructions: check blood sugar twice daily dx: R73.01 Start Date: 07/26/15 Status: OrderedFreestyle Lite Test Strips 100 EA, Subcutaneous, Daily, # 1 boxes, 0 Refill(s), Supply Start Date: 07/26/15 Stop Date: 07/26/15 Status: DiscontinuedFreestyle Test Strips See Instructions, use as directed to check blood sugar 2 times daily DX: R73.01 (non-insulin), # 100 EA, 5 Refill(s), Pharmacy: [facility] [id number], Supply Special Instructions: use as directed to check blood sugar 2 times daily DX: R73.01 (non-insulin) Start Date: 07/26/15 Status: OrderedmetFORMIN 500 mg oral tablet 1 tab(s), Oral, BID, # 180 tab(s), 3 Refill(s), Start Date: 07/24/14 10:25:20 CDT, Pharmacy: [facility] [id number] Start Date: 07/24/14 Stop Date: 07/26/15 Status: CompletedmetFORMIN 500 mg oral tablet 1 tab(s), Oral, BID, # 180 tab(s), 3 Refill(s), Pharmacy: [facility] [id number] Start Date: 07/17/13 Stop Date: 07/24/14 Status: DiscontinuedmetFORMIN 500 mg oral tablet 1 tab(s), Oral, BID, X 90 days, # 180 tab(s), 3 Refill(s), Start Date: 07/26/15 7:17:34 CDT, Pharmacy: [facility] [id number] Start Date: 07/26/15 Stop Date: 12/10/15 Status: CompletedmetFORMIN 500 mg oral tablet 1 tab(s), Oral, BID, X 90 days, # 180 tab(s), 2 Refill(s), Pharmacy: [facility] [id number] Start Date: 06/03/16 Stop Date: 07/29/16 Status: CompletedmetFORMIN 500 mg oral tablet 1 tab(s), Oral, BID, # 180 tab(s), 2 Refill(s), Start Date: 07/29/16 8:16:07 CDT , Pharmacy: [facility] [id number] Start Date: 07/29/16 Stop Date: 04/25/17 Status: OrderedmetFORMIN 500 mg oral tablet 1 tab(s), Oral, BID, # 180 tab(s), 0 Refill(s) Start Date: 07/13/13 Stop Date: 07/17/13 Status: DiscontinuedmetFORMIN 500 mg oral tablet 1 tab(s), Oral, BID, X 90 days, # 180 tab(s), 0 Refill(s), Start Date: 12/10/15 8:57:26 CDT, Pharmacy: [facility] [id number] Start Date: 12/10/15 Stop Date: 03/04/16 Status: CompletedmetFORMIN 500 mg oral tablet 1 tab(s), Oral, BID, # 180 tab(s), 0 Refill(s), Start Date: 03/04/16 15:27:57 MARITIME PILOT, Pharmacy: [facility] [id number] Start Date: 03/04/16 Stop Date: 06/03/16 Status: Completedmetoprolol tartrate 50 mg oral tablet 1 tab(s), Oral, BID, With meals, # 180 tab(s), 3 Refill(s), Pharmacy: [facility] [id number] Special Instructions: With meals Start Date: 07/17/13 Stop Date: 07/24/14 Status: Discontinuedmetoprolol tartrate 50 mg oral tablet 1 tab(s), Oral, BID, With meals, X 90 days, # 180 tab(s), 3 Refill(s), Start Date: 07/26/15 7:18:01 CDT, Pharmacy: [facility] [id number] Special Instructions: With meals Start Date: 07/26/15 Stop Date: 07/29/16 Status: Completedmetoprolol tartrate 50 mg oral tablet 2 tab(s), Oral, BID, With meals, # 180 tab(s), 0 Refill(s) Special Instructions: With meals Start Date: 07/13/13 Stop Date: 07/17/13 Status: Discontinuedmetoprolol tartrate 50 mg oral tablet 0.5 tab(s), Oral, BID, With meals, # 90 tab(s), 3 Refill(s), Start Date: 8:16:08 CDT, Pharmacy: [facility] [id number] Special Instructions: With meals Start Date: 07/29/16 Stop Date: 07/24/17 Status: Orderedmetoprolol tartrate 50 mg oral tablet 1 tab(s), Oral, BID, With meals, # 180 tab(s), 3 Refill(s), Start Date: 10:25:50 CDT, Pharmacy: [facility] Special Instructions: With meals Start Date: 07/24/14 Stop Date: 07/26/15 Status: CompletedPepcid 20 mg oral tablet 1 tab(s), Oral, BID, # 180 tab(s), 0 Refill(s), Start Date: 07/29/16 8:16:06 CDT , Pharmacy: [facility] [id number] Start Date: 07/29/16 Status: OrderedPepcid 20 mg oral tablet 1 tab(s), Oral, BID, # 180 tab(s), 0 Refill(s), Start Date: 07/24/14 10:28:00 CDT, other reason (Rx) Start Date: 07/24/14 Stop Date: 07/29/16 Status: Completedsimvastatin 40 mg oral tablet 1 tab(s), Oral, HS, # 90 tab(s), 3 Refill(s), Pharmacy: [facility] [id number] Start Date: 07/17/13 Stop Date: 07/24/14 Status: Discontinuedsimvastatin 40 mg oral tablet 1 tab(s), Oral, HS, X 90 days, # 90 tab(s), 3 Refill(s), Start Date: 07/26/15 7: 18:31 CDT, Pharmacy: [facility] [id number] Start Date: 07/26/15 Stop Date: 07/29/16 Status: Completedsimvastatin 40 mg oral tablet 1 tab(s), Oral, HS, # 30 tab(s), 0 Refill(s) Start Date: 07/13/13 Stop Date: 07/17/13 Status: Discontinuedsimvastatin 40 mg oral tablet 1 tab(s), Oral, HS, # 90 tab(s), 3 Refill(s), Start Date: 07/29/16 8:16:08 CDT, Pharmacy: [facility] [id number] Start Date: 07/29/16 Stop Date: 07/24/17 Status: Orderedsimvastatin 40 mg oral tablet 1 tab(s), Oral, HS, # 90 tab(s), 3 Refill(s), Start Date: 07/24/14 10:25:58 CDT , Pharmacy: [facility] Start Date: 07/24/14 Stop Date: 07/26/15 Status: Completedterazosin 10 mg oral capsule 1 cap(s), Oral, HS, # 90 cap(s), 3 Refill(s), Start Date: 07/17/13 11:11:00 CDT , Pharmacy: [facility] Start Date: 07/17/13 Stop Date: 07/13/14 Status: Completedterazosin 10 mg oral capsule 1 cap(s), Oral, HS, X 90 days, # 90 cap(s), 3 Refill(s), Start Date: 07/26/15 7: 18:55 CDT, Pharmacy: [facility] Start Date: 07/26/15 Stop Date: 07/29/16 Status: Completedterazosin 10 mg oral capsule 1 cap(s), Oral, HS, # 90 cap(s), 3 Refill(s), Start Date: 07/13/14 10:00:35 CDT , Pharmacy: [facility] Start Date: 07/13/14 Stop Date: 07/24/14 Status: [...] # 90 cap(s), 3 Refill(s), Start Date: 07/29/16 8:16:09 CDT, Pharmacy: [facility] Start Date: 07/29/16 Stop Date: 07/24/17 Status: Orderedterazosin 10 mg oral capsule 1 cap(s), Oral, HS, X 90 days, # 90 cap(s), 3 Refill(s), Start Date: 07/24/14 10 :26:14 CDT, Pharmacy: [facility] Start Date: 07/24/14 Stop Date: 07/26/15 Status: Completed Results No data available for this section Immunizations No data available for this section Procedures Procedure Date Related Diagnosis Body Site Thyroidectomy 08/1994 Cyst Removal1 12/1993 Colonoscopy2 [id number] 1995, June 2001, July 2006, July 2009 Social History No data available for this section Assessment and Plan No data available for this section
--- OUTSIDE RECORDS SUMMARY | 2016-08-28 10:47 | XMS REPORT | Summary of Care ---
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, 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) Start Date: 01/28/16 [...] tab(s), 1 Refill(s), Start Date: 04/11/14 15:59:12 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, 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) Start Date: 04/11/14 Stop Date: 06/15/14 Status: CompletedALPRAZolam 0.5 mg oral tablet 1 tab(s), Oral, BID, PRN for anxiety, # 60 tab(s), 1 Refill(s), Start Date: 07/22 14:26:02 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, 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) Start Date: 12/14/13 Stop Date: 02/14/14 Status: CompletedALPRAZolam 0.5 mg oral tablet 1 tab(s), Oral, BID, PRN for anxiety, X 30 days, # 60 tab(s), 5 Refill(s), Start Date: 07/24/14 10:27:35 CDT Start Date: 07/24/14 Stop Date: 02/07/15 Status: CompletedamLODIPine 10 mg oral tablet 1 tab(s), Oral, Daily, # 90 tab(s), 3 Refill(s), Start Date: 07/24/14 10:24:43 CDT, Pharmacy: [facility] Start Date: 07/24/14 Stop Date: 07/26/15 Status: CompletedamLODIPine 10 mg oral tablet 1 tab(s), Oral, Daily, # 90 tab(s), 3 Refill(s), Pharmacy: [facility] Start Date: 07/17/13 Stop Date: 07/24/14 Status: DiscontinuedamLODIPine 10 mg oral tablet 1 tab(s), Oral, Daily, X 90 days, # 90 tab(s), 3 Refill(s), Start Date: 7:16:37 CDT, Pharmacy: [id number] Start Date: 07/26/15 Stop Date: 07/29/16 Status: CompletedamLODIPine 10 mg oral tablet 1 tab(s), Oral, Daily, # 90 tab(s), 3 Refill(s), Start Date: 07/29/16 8:16:04 CDT, Pharmacy: [place] [facility] [id number] Start Date: 07/29/16 Stop Date: 07/24/17 Status: [...] 3 Refill(s), Start Date: 10:24:56 CDT, Pharmacy: [place] [id number] Start Date: 07/24/14 Stop Date: 07/26/15 Status: Completedbenazepril 40 mg oral tablet 1 tab(s), Oral, Daily, # 90 tab(s), 3 Refill(s), Start Date: 07/17/13 11:11:00 CDT, Pharmacy: [place] [id number] Start Date: 07/17/13 Stop Date: 02/26/14 Status: Completedbenazepril 40 mg oral tablet 1 tab(s), Oral, Daily, X 90 days, # 90 tab(s), 3 Refill(s), Start Date: 7:17:09 CDT, Pharmacy: [place] [id number] Start Date: 07/26/15 Stop Date: 07/29/16 Status: Completedbenazepril 40 mg oral tablet 1 tab(s), Oral, Daily, # 90 tab(s), 3 Refill(s), Start Date: 02/26/14 9:32:13 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, Pharmacy: [facility] Start Date: 02/26/14 Stop Date: 07/24/14 Status: Discontinuedbenazepril 40 mg oral tablet 1 tab(s), Oral, Daily, # 90 tab(s), 3 Refill(s), Start Date: 07/29/16 8:16:05 CDT, Pharmacy: [place] [id number] Start Date: 07/29/16 Stop Date: 07/24/17 Status: OrderedFreestyle Lite Test Strips See Instructions, check blood sugar twice daily dx: R73.01, # 100 EA, 5 Refill(s), Pharmacy: [place] [id number], Supply Special Instructions: check blood sugar twice daily dx: R73.01 Start Date: 07/26/15 Status: OrderedFreestyle Lite Test Strips 100 EA, Subcutaneous, Daily, # 1 boxes, 0 Refill(s), Supply Start Date: 07/26/15 Stop Date: 07/26/15 Status: DiscontinuedFreestyle Test Strips See Instructions, use as directed to check blood sugar 2 times daily DX: R73.01 (non-insulin), # 100 EA, 5 Refill(s), Pharmacy: [place] [id number], Supply Special Instructions: use as directed to check blood sugar 2 times daily DX: R73.01 (non-insulin) Start Date: 07/26/15 Status: OrderedmetFORMIN 500 mg oral tablet 1 tab(s), Oral, BID, # 180 tab(s), 3 Refill(s), Start Date: 07/24/14 10:25:20 CDT, Pharmacy: [place] [facility] [id number] Start Date: 07/24/14 Stop Date: 07/26/15 Status: CompletedmetFORMIN 500 mg oral tablet 1 tab(s), Oral, BID, # 180 tab(s), 3 Refill(s), Pharmacy: [place] [id number] Start Date: 07/17/13 Stop Date: 07/24/14 Status: DiscontinuedmetFORMIN 500 mg oral tablet 1 tab(s), Oral, BID, X 90 days, # 180 tab(s), 3 Refill(s), Start Date: 07/26/15 7:17:34 CDT, Pharmacy: [facility] [id number] Start Date: 07/26/15 Stop Date: 12/10/15 Status: CompletedmetFORMIN 500 mg oral tablet 1 tab(s), Oral, BID, X 90 days, # 180 tab(s), 2 Refill(s), Pharmacy: [facility] [id number] Start Date: 06/03/16 Stop Date: 07/29/16 Status: CompletedmetFORMIN 500 mg oral tablet 1 tab(s), Oral, BID, # 180 tab(s), 2 Refill(s), Start Date: 07/29/16 8:16:07 CDT , Pharmacy: [place] [id number] Start Date: 07/29/16 Stop Date: 04/25/17 Status: OrderedmetFORMIN 500 mg oral tablet 1 tab(s), Oral, BID, # 180 tab(s), 0 Refill(s) Start Date: 07/13/13 Stop Date: 07/17/13 Status: DiscontinuedmetFORMIN 500 mg oral tablet 1 tab(s), Oral, BID, X 90 days, # 180 tab(s), 0 Refill(s), Start Date: 12/10/15 8:57:26 CDT, Pharmacy: [place] [id number] Start Date: 12/10/15 Stop Date: 03/04/16 Status: CompletedmetFORMIN 500 mg oral tablet 1 tab(s), Oral, BID, # 180 tab(s), 0 Refill(s), Start Date: 03/04/16 15:27:57 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, Pharmacy: [facility] Start Date: 03/04/16 Stop Date: 06/03/16 Status: Completedmetoprolol tartrate 50 mg oral tablet 1 tab(s), Oral, BID, With meals, # 180 tab(s), 3 Refill(s), Pharmacy: [facility] Special Instructions: With meals Start Date: 07/17/13 Stop Date: 07/24/14 Status: Discontinuedmetoprolol tartrate 50 mg oral tablet 1 tab(s), Oral, BID, With meals, X 90 days, # 180 tab(s), 3 Refill(s), Start Date: 07/26/15 7:18:01 CDT, Pharmacy: [facility] Special Instructions: With meals Start Date: 07/26/15 Stop Date: 07/29/16 Status: Completedmetoprolol tartrate 50 mg oral tablet 2 tab(s), Oral, BID, With meals, # 180 tab(s), 0 Refill(s) Special Instructions: With meals Start Date: 07/13/13 Stop Date: 07/17/13 Status: Discontinuedmetoprolol tartrate 50 mg oral tablet 0.5 tab(s), Oral, BID, With meals, # 90 tab(s), 3 Refill(s), Start Date: 8:16:08 CDT, Pharmacy: [place] [id number] Special Instructions: With meals Start Date: 07/29/16 Stop Date: 07/24/17 Status: Orderedmetoprolol tartrate 50 mg oral tablet 1 tab(s), Oral, BID, With meals, # 180 tab(s), 3 Refill(s), Start Date: 10:25:50 CDT, Pharmacy: [place] [id number] Special Instructions: With meals Start Date: 07/24/14 Stop Date: 07/26/15 Status: CompletedPepcid 20 mg oral tablet 1 tab(s), Oral, BID, # 180 tab(s), 0 Refill(s), Start Date: 07/29/16 8:16:06 CDT , Pharmacy: [place] [id number] Start Date: 07/29/16 Status: OrderedPepcid 20 mg oral tablet 1 tab(s), Oral, BID, # 180 tab(s), 0 Refill(s), Start Date: 07/24/14 10:28:00 CDT, other reason (Rx) Start Date: 07/24/14 Stop Date: 07/29/16 Status: Completedsimvastatin 40 mg oral tablet 1 tab(s), Oral, HS, # 90 tab(s), 3 Refill(s), Pharmacy: [place] [id number] Start Date: 07/17/13 Stop Date: 07/24/14 Status: Discontinuedsimvastatin 40 mg oral tablet 1 tab(s), Oral, HS, X 90 days, # 90 tab(s), 3 Refill(s), Start Date: 07/26/15 7: 18:31 CDT, Pharmacy: [place] [id number] Start Date: 07/26/15 Stop Date: 07/29/16 Status: Completedsimvastatin 40 mg oral tablet 1 tab(s), Oral, HS, # 30 tab(s), 0 Refill(s) Start Date: 07/13/13 Stop Date: 07/17/13 Status: Discontinuedsimvastatin 40 mg oral tablet 1 tab(s), Oral, HS, # 90 tab(s), 3 Refill(s), Start Date: 07/29/16 8:16:08 CDT, Pharmacy: [place] [id number] Start Date: 07/29/16 Stop Date: 07/24/17 Status: Orderedsimvastatin 40 mg oral tablet 1 tab(s), Oral, HS, # 90 tab(s), 3 Refill(s), Start Date: 07/24/14 10:25:58 CDT , Pharmacy: [place] [id number] Start Date: 07/24/14 Stop Date: 07/26/15 Status: Completedterazosin 10 mg oral capsule 1 cap(s), Oral, HS, # 90 cap(s), 3 Refill(s), Start Date: 07/17/13 11:11:00 CDT , Pharmacy: [place] [id number] Start Date: 07/17/13 Stop Date: 07/13/14 Status: Completedterazosin 10 mg oral capsule 1 cap(s), Oral, HS, X 90 days, # 90 cap(s), 3 Refill(s), Start Date: 07/26/15 7: 18:55 CDT, Pharmacy: [place] [id number] Start Date: 07/26/15 Stop Date: 07/29/16 Status: Completedterazosin 10 mg oral capsule 1 cap(s), Oral, HS, # 90 cap(s), 3 Refill(s), Start Date: 07/13/14 10:00:35 CDT , Pharmacy: [place] [id number] Start Date: 07/13/14 Stop Date: 07/24/14 Status: [...] Refill(s), Start Date: 07/29/16 8:16:09 CDT, [facility]acy: [facility] Start Date: 07/29/16 Stop Date: 07/24/17 Status: Orderedterazosin 10 mg oral capsule 1 cap(s), Oral, HS, X 90 days, # 90 cap(s), 3 Refill(s), Start Date: 07/24/14 10 :26:14 CDT, [facility]acy: [facility] Start Date: 07/24/14 Stop Date: 07/26/15 Status: Completed Results Patient Viewable Results Most recent to oldest [Reference Range]: 1 TSH [0.50-3.00 mIU/L] 0.74 mIU/L (07/29/16 8:37 AM) PSA Screen [0.0-4.0 ng/mL] 7.4 ng/mL *HI* (07/29/16 8:37 AM) Immunizations No data available for this section Procedures Procedure Date Related Diagnosis Body Site Thyroidectomy 08/1994 Cyst Removal1 12/1993 Colonoscopy2 [id number] 1995, June 2001, July 2006, July 2009 Social History No data available for this section Assessment and Plan No data available for this section
--- OUTSIDE RECORDS SUMMARY | 2016-08-28 10:48 | XMS REPORT | Summary of Care ---
:1940 Author Organization [facility] Address [address] [place] [id number] Care Team Providers Name Role Phone Anna Candelaria Primary Care Physician Encounter Date(s): 05/19/16 - 05/19/[address] [id number] Discharge Disposition: 01 Discharged to Home or Self Care Attending Physician: Anna Candelaria DNP Referring Physician: Anna Candelaria DNP Vital Signs Most recent to oldest [Reference Range]: 1 Temperature Tympanic [36.6-38.1 DegC] 36.6 DegC (05/19/16 12:48 PM) Temperature C to F 97.9 (05/19/16 12:48 PM) Peripheral Pulse Rate [60-100 bpm] 62 bpm (05/19/16 12:48 PM) SpO2 [90-100 %] 98 % (05/19/16 12:48 PM) Blood Pressure [90-130/60-90 mmHg] 110/60mmHg (05/19/16 12:48 PM) Mean Arterial Pressure, Cuff 77 mmHg (05/19/16 12:48 PM) Most recent to oldest [Reference Range]: 1 Height/Length Measured 193 cm (05/19/16 12:48 PM) Weight Dosing 128.10 kg1 (05/19/16 12:51 PM) Weight Measured 128.1 kg (05/19/16 12:48 PM) BSA Measured 2.57 m2 (05/19/16 12:48 PM) Body Mass Index Measured 34.39 kg/m2 (05/19/16 12:48 PM) 1Result Comment: This result was because the dosing weight was either not entered or it is>30 days old. 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) Start Date: 02/14/14 [...] tab(s), 5 Refill(s), Start Date: 02/07/15 10:33:50 FATBACK TRIMMER, 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) Start Date: 02/07/15 [...] 60 tab(s), 5 Refill(s), Start Date: 13:29:20 FATBACK TRIMMER, 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) Start Date: 01/28/16 Stop Date: 07/26/16 Status: OrderedALPRAZolam 0.5 mg oral tablet 1 tab(s), Oral, BID, PRN for anxiety, X 30 days, # 60 tab(s), 1 Refill(s), Start Date: 04/11/14 15:59:12 FATBACK TRIMMER, 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) Start Date: 04/11/14 Stop Date: 06/15/14 Status: CompletedALPRAZolam 0.5 mg oral tablet 1 tab(s), Oral, BID, PRN for anxiety, # 60 tab(s), 1 Refill(s), Start Date: 07/22 14:26:02 FATBACK TRIMMER, 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) Start Date: 12/14/13 Stop Date: 02/14/14 Status: CompletedALPRAZolam 0.5 mg oral tablet 1 tab(s), Oral, BID, PRN for anxiety, X 30 days, # 60 tab(s), 5 Refill(s), Start Date: 07/24/14 10:27:35 CDT Start Date: 07/24/14 Stop Date: 02/07/15 Status: CompletedamLODIPine 10 mg oral tablet 1 tab(s), Oral, Daily, # 90 tab(s), 3 Refill(s), Start Date: 07/24/14 10:24:43 CDT, Pharmacy: [place] [facility] [id number] Start Date: 07/24/14 Stop Date: 07/26/15 Status: CompletedamLODIPine 10 mg oral tablet 1 tab(s), Oral, Daily, # 90 tab(s), 3 Refill(s), Pharmacy: [place] [id number] Start Date: 07/17/13 Stop Date: 07/24/14 Status: DiscontinuedamLODIPine 10 mg oral tablet 1 tab(s), Oral, Daily, # 90 tab(s), 3 Refill(s), Start Date: 07/26/15 7:16:37 CDT, Pharmacy: [place] [id number] Start Date: 07/26/15 Stop Date: 07/20/16 Status: [...] 3 Refill(s), Start Date: 10:24:56 CDT, Pharmacy: [place] [id number] Start Date: 07/24/14 Stop Date: 07/26/15 Status: Completedbenazepril 40 mg oral tablet 1 tab(s), Oral, Daily, # 90 tab(s), 3 Refill(s), Start Date: 07/17/13 11:11:00 CDT, Pharmacy: [place] [id number] Start Date: 07/17/13 Stop Date: 02/26/14 Status: Completedbenazepril 40 mg oral tablet 1 tab(s), Oral, Daily, # 90 tab(s), 3 Refill(s), Start Date: 07/26/15 7:17:09 CDT, Pharmacy: [facility] [id number] Start Date: 07/26/15 Stop Date: 07/20/16 Status: Orderedbenazepril 40 mg oral tablet 1 tab(s), Oral, Daily, # 90 tab(s), 3 Refill(s), Start Date: 02/26/14 9:32:13 FATBACK TRIMMER, Pharmacy: [facility] [id number] Start Date: 02/26/14 Stop Date: 07/24/14 Status: DiscontinuedFreestyle Lite Test Strips See Instructions, check blood sugar twice daily dx: R73.01, # 100 EA, 5 Refill(s), Pharmacy: [place] [facility] [id number], Supply Special Instructions: check blood sugar twice daily dx: R73.01 Start Date: 07/26/15 Status: OrderedFreestyle Lite Test Strips 100 EA, Subcutaneous, Daily, # 1 boxes, 0 Refill(s), Supply Start Date: 07/26/15 Stop Date: 07/26/15 Status: DiscontinuedFreestyle Test Strips See Instructions, use as directed to check blood sugar 2 times daily DX: R73.01 (non-insulin), # 100 EA, 5 Refill(s), Pharmacy: [facility] [id number], Supply Special Instructions: use as directed to check blood sugar 2 times daily DX: R73.01 (non-insulin) Start Date: 07/26/15 Status: OrderedmetFORMIN 500 mg oral tablet 1 tab(s), Oral, BID, # 180 tab(s), 3 Refill(s), Start Date: 07/24/14 10:25:20 CDT, Pharmacy: [place] [id number] Start Date: 07/24/14 Stop Date: 07/26/15 Status: CompletedmetFORMIN 500 mg oral tablet 1 tab(s), Oral, BID, # 180 tab(s), 3 Refill(s), Pharmacy: [place] [id number] Start Date: 07/17/13 Stop Date: 07/24/14 Status: DiscontinuedmetFORMIN 500 mg oral tablet 1 tab(s), Oral, BID, X 90 days, # 180 tab(s), 3 Refill(s), Start Date: 07/26/15 7:17:34 CDT, Pharmacy: [place] [facility] [id number] Start Date: 07/26/15 Stop Date: 12/10/15 Status: CompletedmetFORMIN 500 mg oral tablet 1 tab(s), Oral, BID, # 180 tab(s), 0 Refill(s) Start Date: 07/13/13 Stop Date: 07/17/13 Status: DiscontinuedmetFORMIN 500 mg oral tablet 1 tab(s), Oral, BID, X 90 days, # 180 tab(s), 0 Refill(s), Start Date: 12/10/15 8:57:26 CDT, Pharmacy: [facility] [id number] Start Date: 12/10/15 Stop Date: 03/04/16 Status: CompletedmetFORMIN 500 mg oral tablet 1 tab(s), Oral, BID, # 180 tab(s), 0 Refill(s), Start Date: 03/04/16 15:27:57 FATBACK TRIMMER, Pharmacy: [place] [id number] Start Date: 03/04/16 Stop Date: 06/02/16 Status: Orderedmetoprolol tartrate 50 mg oral tablet 1 tab(s), Oral, BID, With meals, # 180 tab(s), 3 Refill(s), Pharmacy: [place] [id number] Special Instructions: With meals Start Date: 07/17/13 Stop Date: 07/24/14 Status: Discontinuedmetoprolol tartrate 50 mg oral tablet 1 tab(s), Oral, BID, With meals, # 180 tab(s), 3 Refill(s), Start Date: 7:18:01 CDT, Pharmacy: [place] [id number] Special Instructions: With meals Start Date: 07/26/15 Stop Date: 07/20/16 Status: Orderedmetoprolol tartrate 50 mg oral tablet 2 tab(s), Oral, BID, With meals, # 180 tab(s), 0 Refill(s) Special Instructions: With meals Start Date: 07/13/13 Stop Date: 07/17/13 Status: Discontinuedmetoprolol tartrate 50 mg oral tablet 1 tab(s), Oral, BID, With meals, # 180 tab(s), 3 Refill(s), Start Date: 10:25:50 CDT, Pharmacy: [facility] Special Instructions: With meals Start Date: 07/24/14 Stop Date: 07/26/15 Status: CompletedPepcid 20 mg oral tablet 1 tab(s), Oral, BID, # 180 tab(s), 0 Refill(s), Start Date: 07/24/14 10:28:00 CDT, other reason (Rx) Start Date: 07/24/14 Status: Orderedsimvastatin 40 mg oral tablet 1 tab(s), Oral, HS, # 90 tab(s), 3 Refill(s), Pharmacy: [place] [id number] Start Date: 07/17/13 Stop Date: 07/24/14 Status: Discontinuedsimvastatin 40 mg oral tablet 1 tab(s), Oral, HS, # 90 tab(s), 3 Refill(s), Start Date: 07/26/15 7:18:31 CDT, Pharmacy: [place] [id number] Start Date: 07/26/15 Stop Date: 07/20/16 Status: Orderedsimvastatin 40 mg oral tablet 1 tab(s), Oral, HS, # 30 tab(s), 0 Refill(s) Start Date: 07/13/13 Stop Date: 07/17/13 Status: Discontinuedsimvastatin 40 mg oral tablet 1 tab(s), Oral, HS, # 90 tab(s), 3 Refill(s), Start Date: 07/24/14 10:25:58 CDT , Pharmacy: [place] [id number] Start Date: 07/24/14 Stop Date: 07/26/15 Status: Completedterazosin 10 mg oral capsule 1 cap(s), Oral, HS, # 90 cap(s), 3 Refill(s), Start Date: 07/17/13 11:11:00 CDT , Pharmacy: [place] [id number] Start Date: 07/17/13 Stop Date: 07/13/14 Status: Completedterazosin 10 mg oral capsule 1 cap(s), Oral, HS, # 90 cap(s), 3 Refill(s), Start Date: 07/26/15 7:18:55 CDT, Pharmacy: [place] [id number] Start Date: 07/26/15 Stop Date: 07/20/16 Status: Orderedterazosin 10 mg oral capsule 1 cap(s), Oral, HS, # 90 cap(s), 3 Refill(s), Start Date: 07/13/14 10:00:35 CDT , Pharmacy: [facility] Start Date: 07/13/14 Stop Date: 07/24/14 Status: [...] Start Date: 07/24/14 10 :26:14 CDT, Pharmacy: [facility] Start Date: 07/24/14 Stop Date: 07/26/15 Status: Completed Results No data available for this section Immunizations No data available for this section Procedures Procedure Date Related Diagnosis Body Site Thyroidectomy 08/1994 Cyst Removal1 12/1993 Colonoscopy2 [id number] 1995, June 2001, July 2006, July 2009 Social History No data available for this section Assessment and Plan No data available for this section
--- OUTSIDE RECORDS SUMMARY | 2016-08-28 10:48 | XMS REPORT | Summary of Care ---
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) Start Date: 02/14/14 [...] tab(s), 5 Refill(s), Start Date: 02/07/15 10:33:50 REFUSE COLLECTOR, 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) Start Date: 02/07/15 [...] 60 tab(s), 5 Refill(s), Start Date: 13:29:20 REFUSE COLLECTOR, 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) Start Date: 01/28/16 Stop Date: 07/26/16 Status: OrderedALPRAZolam 0.5 mg oral tablet 1 tab(s), Oral, BID, PRN for anxiety, X 30 days, # 60 tab(s), 1 Refill(s), Start Date: 04/11/14 15:59:12 REFUSE COLLECTOR, 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) Start Date: 04/11/14 Stop Date: 06/15/14 Status: CompletedALPRAZolam 0.5 mg oral tablet 1 tab(s), Oral, BID, PRN for anxiety, # 60 tab(s), 1 Refill(s), Start Date: 07/22 14:26:02 REFUSE COLLECTOR, 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) Start Date: 12/14/13 Stop Date: 02/14/14 Status: CompletedALPRAZolam 0.5 mg oral tablet 1 tab(s), Oral, BID, PRN for anxiety, X 30 days, # 60 tab(s), 5 Refill(s), Start Date: 07/24/14 10:27:35 CDT Start Date: 07/24/14 Stop Date: 02/07/15 Status: CompletedamLODIPine 10 mg oral tablet 1 tab(s), Oral, Daily, # 90 tab(s), 3 Refill(s), Start Date: 07/24/14 10:24:43 CDT, Pharmacy: [facility] Start Date: 07/24/14 Stop Date: 07/26/15 Status: CompletedamLODIPine 10 mg oral tablet 1 tab(s), Oral, Daily, # 90 tab(s), 3 Refill(s), Pharmacy: [facility] Start Date: 07/17/13 Stop Date: 07/24/14 Status: DiscontinuedamLODIPine 10 mg oral tablet 1 tab(s), Oral, Daily, # 90 tab(s), 3 Refill(s), Start Date: 07/26/15 7:16:37 CDT, [facility] Start Date: 07/26/15 Stop Date: 07/20/16 Status: OrderedamLODIPine 10 mg oral tablet 1 tab(s), Oral, Daily, # 30 tab(s), 0 Refill(s) Start Date: 07/13/13 Stop Date: 07/17/13 Status: Discontinuedbenazepril 20 mg oral tablet 2 tab(s), Oral, Daily, # 30 tab(s), 0 Refill(s) Start Date: 6/5/14 Stop Date: 07/17/13 Status: Discontinuedbenazepril 40 mg oral tablet 1 tab(s), Oral, Daily, X 90 days, # 90 tab(s), 3 Refill(s), Start Date: 10:24:56 CDT, Pharmacy: [place] [id number] Start Date: 07/24/14 Stop Date: 07/26/15 Status: Completedbenazepril 40 mg oral tablet 1 tab(s), Oral, Daily, # 90 tab(s), 3 Refill(s), Start Date: 07/17/13 11:11:00 CDT, Pharmacy: [facility] [id number] Start Date: 07/17/13 Stop Date: 02/26/14 Status: Completedbenazepril 40 mg oral tablet 1 tab(s), Oral, Daily, # 90 tab(s), 3 Refill(s), Start Date: 07/26/15 7:17:09 CDT, Pharmacy: [facility] [id number] Start Date: 07/26/15 Stop Date: 07/20/16 Status: Orderedbenazepril 40 mg oral tablet 1 tab(s), Oral, Daily, # 90 tab(s), 3 Refill(s), Start Date: 02/26/14 9:32:13 REFUSE COLLECTOR, Pharmacy: [facility] [id number] Start Date: 02/26/14 Stop Date: 07/24/14 Status: DiscontinuedFreestyle Lite Test Strips See Instructions, check blood sugar twice daily dx: R73.01, # 100 EA, 5 Refill(s), Pharmacy: [facility] [id number], Supply Special Instructions: check blood sugar twice daily dx: R73.01 Start Date: 07/26/15 Status: OrderedFreestyle Lite Test Strips 100 EA, Subcutaneous, Daily, # 1 boxes, 0 Refill(s), Supply Start Date: 07/26/15 Stop Date: 07/26/15 Status: DiscontinuedFreestyle Test Strips See Instructions, use as directed to check blood sugar 2 times daily DX: R73.01 (non-insulin), # 100 EA, 5 Refill(s), Pharmacy: [facility] [id number], Supply Special Instructions: use as directed to check blood sugar 2 times daily DX: R73.01 (non-insulin) Start Date: 07/26/15 Status: OrderedmetFORMIN 500 mg oral tablet 1 tab(s), Oral, BID, # 180 tab(s), 3 Refill(s), Start Date: 07/24/14 10:25:20 CDT, Pharmacy: [facility] [id number] Start Date: 07/24/14 Stop Date: 07/26/15 Status: CompletedmetFORMIN 500 mg oral tablet 1 tab(s), Oral, BID, # 180 tab(s), 3 Refill(s), Pharmacy: [facility] [id number] Start Date: 07/17/13 Stop Date: 07/24/14 Status: DiscontinuedmetFORMIN 500 mg oral tablet 1 tab(s), Oral, BID, X 90 days, # 180 tab(s), 3 Refill(s), Start Date: 07/26/15 7:17:34 CDT, Pharmacy: [facility] [id number] Start Date: 07/26/15 Stop Date: 12/10/15 Status: CompletedmetFORMIN 500 mg oral tablet 1 tab(s), Oral, BID, # 180 tab(s), 2 Refill(s), Pharmacy: [facility] [id number] Start Date: 06/03/16 Stop Date: 09/01/16 Status: OrderedmetFORMIN 500 mg oral tablet 1 tab(s), Oral, BID, # 180 tab(s), 0 Refill(s) Start Date: 07/13/13 Stop Date: 07/17/13 Status: DiscontinuedmetFORMIN 500 mg oral tablet 1 tab(s), Oral, BID, X 90 days, # 180 tab(s), 0 Refill(s), Start Date: 12/10/15 8:57:26 CDT, Pharmacy: [facility] [id number] Start Date: 12/10/15 Stop Date: 03/04/16 Status: CompletedmetFORMIN 500 mg oral tablet 1 tab(s), Oral, BID, # 180 tab(s), 0 Refill(s), Start Date: 03/04/16 15:27:57 REFUSE COLLECTOR, Pharmacy: [facility] [id number] Start Date: 03/04/16 Stop Date: 06/03/16 Status: Completedmetoprolol tartrate 50 mg oral tablet 1 tab(s), Oral, BID, With meals, # 180 tab(s), 3 Refill(s), Pharmacy: [place] [id number] Special Instructions: With meals Start Date: 07/17/13 Stop Date: 07/24/14 Status: Discontinuedmetoprolol tartrate 50 mg oral tablet 1 tab(s), Oral, BID, With meals, # 180 tab(s), 3 Refill(s), Start Date: 7:18:01 CDT, Pharmacy: [facility] Special Instructions: With meals Start Date: 07/26/15 Stop Date: 07/20/16 Status: Orderedmetoprolol tartrate 50 mg oral tablet 2 tab(s), Oral, BID, With meals, # 180 tab(s), 0 Refill(s) Special Instructions: With meals Start Date: 07/13/13 Stop Date: 07/17/13 Status: Discontinuedmetoprolol tartrate 50 mg oral tablet 1 tab(s), Oral, BID, With meals, # 180 tab(s), 3 Refill(s), Start Date: 10:25:50 CDT, Pharmacy: [place] [id number] Special Instructions: With meals Start Date: 07/24/14 Stop Date: 07/26/15 Status: CompletedPepcid 20 mg oral tablet 1 tab(s), Oral, BID, # 180 tab(s), 0 Refill(s), Start Date: 07/24/14 10:28:00 CDT, other reason (Rx) Start Date: 07/24/14 Status: Orderedsimvastatin 40 mg oral tablet 1 tab(s), Oral, HS, # 90 tab(s), 3 Refill(s), Pharmacy: [place] [id number] Start Date: 07/17/13 Stop Date: 07/24/14 Status: Discontinuedsimvastatin 40 mg oral tablet 1 tab(s), Oral, HS, # 90 tab(s), 3 Refill(s), Start Date: 07/26/15 7:18:31 CDT, Pharmacy: [place] [id number] Start Date: 07/26/15 Stop Date: 07/20/16 Status: Orderedsimvastatin 40 mg oral tablet 1 tab(s), Oral, HS, # 30 tab(s), 0 Refill(s) Start Date: 07/13/13 Stop Date: 07/17/13 Status: Discontinuedsimvastatin 40 mg oral tablet 1 tab(s), Oral, HS, # 90 tab(s), 3 Refill(s), Start Date: 07/24/14 10:25:58 CDT , Pharmacy: [place] [id number] Start Date: 07/24/14 Stop Date: 07/26/15 Status: Completedterazosin 10 mg oral capsule 1 cap(s), Oral, HS, # 90 cap(s), 3 Refill(s), Start Date: 07/17/13 11:11:00 CDT , Pharmacy: [place] [id number] Start Date: 07/17/13 Stop Date: 07/13/14 Status: Completedterazosin 10 mg oral capsule 1 cap(s), Oral, HS, # 90 cap(s), 3 Refill(s), Start Date: 07/26/15 7:18:55 CDT, Pharmacy: [facility] Start Date: 07/26/15 Stop Date: 07/20/16 Status: Orderedterazosin 10 mg oral capsule 1 cap(s), Oral, HS, # 90 cap(s), 3 Refill(s), Start Date: 07/13/14 10:00:35 CDT , Pharmacy: [place] [id number] Start Date: 07/13/14 Stop Date: 07/24/14 Status: [...] Start Date: 07/24/14 10 :26:14 CDT, Pharmacy: [place] [id number] Start Date: 07/24/14 Stop Date: 07/26/15 Status: Completed Results No data available for this section Immunizations No data available for this section Procedures Procedure Date Related Diagnosis Body Site Thyroidectomy 08/1994 Cyst Removal1 12/1993 Colonoscopy2 [id number] 1995, June 2001, July 2006, July 2009 Social History No data available for this section Assessment and Plan No data available for this section
--- OUTSIDE RECORDS SUMMARY | 2016-08-28 10:48 | XMS REPORT | Summary of Care ---
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) Start Date: 02/14/14 [...] tab(s), 5 Refill(s), Start Date: 02/07/15 10:33:50 ASSOCIATE SOFTWARE DEVELOPER, 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) Start Date: 02/07/15 [...] tab(s), 1 Refill(s), Start Date: 04/11/14 15:59:12 ASSOCIATE SOFTWARE DEVELOPER, 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) Start Date: 04/11/14 Stop Date: 06/15/14 Status: CompletedALPRAZolam 0.5 mg oral tablet 1 tab(s), Oral, BID, PRN for anxiety, # 60 tab(s), 1 Refill(s), Start Date: 07/22 14:26:02 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 SOFTWARE DEVELOPER, 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) Start Date: 12/14/13 Stop Date: 02/14/14 Status: CompletedALPRAZolam 0.5 mg oral tablet 1 tab(s), Oral, BID, PRN for anxiety, X 30 days, # 60 tab(s), 5 Refill(s), Start Date: 07/24/14 10:27:35 CDT Start Date: 07/24/14 Stop Date: 02/07/15 Status: CompletedamLODIPine 10 mg oral tablet 1 tab(s), Oral, Daily, # 90 tab(s), 3 Refill(s), Start Date: 07/24/14 10:24:43 CDT, Pharmacy: [facility] Start Date: 07/24/14 Stop Date: 07/26/15 Status: CompletedamLODIPine 10 mg oral tablet 1 tab(s), Oral, Daily, # 90 tab(s), 3 Refill(s), Pharmacy: [facility] Start Date: 07/17/13 Stop Date: 07/24/14 Status: DiscontinuedamLODIPine 10 mg oral tablet 1 tab(s), Oral, Daily, # 90 tab(s), 3 Refill(s), Start Date: 07/26/15 7:16:37 CDT, Pharmacy: [facility] Start Date: 07/26/15 Stop Date: 07/20/16 Status: [...] 3 Refill(s), Start Date: 10:24:56 CDT, Pharmacy: [facility] Start Date: 07/24/14 Stop Date: 07/26/15 Status: Completedbenazepril 40 mg oral tablet 1 tab(s), Oral, Daily, # 90 tab(s), 3 Refill(s), Start Date: 07/17/13 11:11:00 CDT, Pharmacy: [place] [id number] Start Date: 07/17/13 Stop Date: 02/26/14 Status: Completedbenazepril 40 mg oral tablet 1 tab(s), Oral, Daily, # 90 tab(s), 3 Refill(s), Start Date: 07/26/15 7:17:09 CDT, Pharmacy: [place] [id number] Start Date: 07/26/15 Stop Date: 07/20/16 Status: Orderedbenazepril 40 mg oral tablet 1 tab(s), Oral, Daily, # 90 tab(s), 3 Refill(s), Start Date: 02/26/14 9:32:13 ASSOCIATE SOFTWARE DEVELOPER, Pharmacy: [place] [id number] Start Date: 02/26/14 Stop Date: 07/24/14 Status: DiscontinuedFreestyle Lite Test Strips See Instructions, check blood sugar twice daily dx: R73.01, # 100 EA, 5 Refill(s), Pharmacy: [place] [id number], Supply Special Instructions: check blood sugar twice daily dx: R73.01 Start Date: 07/26/15 Status: OrderedFreestyle Lite Test Strips 100 EA, Subcutaneous, Daily, # 1 boxes, 0 Refill(s), Supply Start Date: 07/26/15 Stop Date: 07/26/15 Status: DiscontinuedFreestyle Test Strips See Instructions, use as directed to check blood sugar 2 times daily DX: R73.01 (non-insulin), # 100 EA, 5 Refill(s), Pharmacy: [place] [id number], Supply Special Instructions: use as directed to check blood sugar 2 times daily DX: R73.01 (non-insulin) Start Date: 07/26/15 Status: OrderedmetFORMIN 500 mg oral tablet 1 tab(s), Oral, BID, # 180 tab(s), 3 Refill(s), Start Date: 07/24/14 10:25:20 CDT, Pharmacy: [place] [id number] Start Date: 07/24/14 Stop Date: 07/26/15 Status: CompletedmetFORMIN 500 mg oral tablet 1 tab(s), Oral, BID, # 180 tab(s), 3 Refill(s), Pharmacy: [place] [id number] Start Date: 07/17/13 Stop Date: 07/24/14 Status: DiscontinuedmetFORMIN 500 mg oral tablet 1 tab(s), Oral, BID, # 180 tab(s), 3 Refill(s), Start Date: 07/26/15 7:17:34 CDT , Pharmacy: [place] [id number] Start Date: 07/26/15 Stop Date: 07/20/16 Status: OrderedmetFORMIN 500 mg oral tablet 1 tab(s), Oral, BID, # 180 tab(s), 0 Refill(s) Start Date: 07/13/13 Stop Date: 07/17/13 Status: Discontinuedmetoprolol tartrate 50 mg oral tablet 1 tab(s), Oral, BID, With meals, # 180 tab(s), 3 Refill(s), Pharmacy: [place] [id number] Special Instructions: With meals Start Date: 07/17/13 Stop Date: 07/24/14 Status: Discontinuedmetoprolol tartrate 50 mg oral tablet 1 tab(s), Oral, BID, With meals, # 180 tab(s), 3 Refill(s), Start Date: 7:18:01 CDT, Pharmacy: [place] [id number] Special Instructions: With meals Start Date: 07/26/15 Stop Date: 07/20/16 Status: Orderedmetoprolol tartrate 50 mg oral tablet 2 tab(s), Oral, BID, With meals, # 180 tab(s), 0 Refill(s) Special Instructions: With meals Start Date: 07/13/13 Stop Date: 07/17/13 Status: Discontinuedmetoprolol tartrate 50 mg oral tablet 1 tab(s), Oral, BID, With meals, # 180 tab(s), 3 Refill(s), Start Date: 10:25:50 CDT, Pharmacy: [place] [id number] Special Instructions: With meals Start Date: 07/24/14 Stop Date: 07/26/15 Status: CompletedPepcid 20 mg oral tablet 1 tab(s), Oral, BID, # 180 tab(s), 0 Refill(s), Start Date: 07/24/14 10:28:00 CDT, other reason (Rx) Start Date: 07/24/14 Status: Orderedsimvastatin 40 mg oral tablet 1 tab(s), Oral, HS, # 90 tab(s), 3 Refill(s), Pharmacy: [place] [id number] Start Date: 07/17/13 Stop Date: 07/24/14 Status: Discontinuedsimvastatin 40 mg oral tablet 1 tab(s), Oral, HS, # 90 tab(s), 3 Refill(s), Start Date: 07/26/15 7:18:31 CDT, Pharmacy: [place] [id number] Start Date: 07/26/15 Stop Date: 07/20/16 Status: Orderedsimvastatin 40 mg oral tablet 1 tab(s), Oral, HS, # 30 tab(s), 0 Refill(s) Start Date: 07/13/13 Stop Date: 07/17/13 Status: Discontinuedsimvastatin 40 mg oral tablet 1 tab(s), Oral, HS, # 90 tab(s), 3 Refill(s), Start Date: 07/24/14 10:25:58 CDT , Pharmacy: [facility] [place] [id number] Start Date: 07/24/14 Stop Date: 07/26/15 Status: Completedterazosin 10 mg oral capsule 1 cap(s), Oral, HS, # 90 cap(s), 3 Refill(s), Start Date: 07/17/13 11:11:00 CDT , Pharmacy: [place] [id number] Start Date: 07/17/13 Stop Date: 07/13/14 Status: Completedterazosin 10 mg oral capsule 1 cap(s), Oral, HS, # 90 cap(s), 3 Refill(s), Start Date: 07/26/15 7:18:55 CDT, Pharmacy: [place] [id number] Start Date: 07/26/15 Stop Date: 07/20/16 Status: Orderedterazosin 10 mg oral capsule 1 cap(s), Oral, HS, # 90 cap(s), 3 Refill(s), Start Date: 07/13/14 10:00:35 CDT , Pharmacy: [place] [id number] Start Date: 07/13/14 Stop Date: 07/24/14 Status: [...] Start Date: 07/24/14 10 :26:14 CDT, Pharmacy: [facility] Start Date: 07/24/14 Stop Date: 07/26/15 Status: Completed Results No data available for this section Immunizations No data available for this section Procedures Procedure Date Related Diagnosis Body Site Thyroidectomy 08/1994 Cyst Removal1 12/1993 Colonoscopy2 [id number] 1995, June 2001, July 2006, July 2009 Social History No data available for this section Assessment and Plan No data available for this section
--- OUTSIDE RECORDS SUMMARY | 2016-08-28 10:48 | XMS REPORT | Summary of Care ---
:1940 Author Organization [facility] Address [address] [place] [id number] Care Team Providers Name Role Phone Anna Candelaria Primary Care Physician Encounter Date(s): 07/29/16 - 07/29/[address] [id number] Discharge Disposition: 01 Discharged to Home or Self Care Attending Physician: Anna Candelaria DNP Referring Physician: Anna Candelaria DNP Vital Signs Most recent to oldest [Reference Range]: 1 Peripheral Pulse Rate [60-100 bpm] 55 bpm *LOW* (07/29/16 7:53 AM) SpO2 [90-100 %] 98 % (07/29/16 7:53 AM) SpO2 Location Right hand (07/29/16 7:53 AM) Blood Pressure [90-130/60-90 mmHg] 140/64mmHg *HI* (07/29/16 7:53 AM) Mean Arterial Pressure, Cuff 89 mmHg (07/29/16 7:53 AM) Most recent to oldest [Reference Range]: 1 Height/Length Measured 193 cm (07/29/16 7:53 AM) Weight Dosing 129.00 kg1 (07/29/16 7:57 AM) Weight Measured 129.0 kg (07/29/16 7:53 AM) BSA Measured 2.57 m2 (07/29/16 7:53 AM) Body Mass Index Measured 34.63 kg/m2 (07/29/16 7:53 AM) 1Result Comment: This result was because the dosing weight was either not entered or it is>30 days old. 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) Start Date: 01/28/16 [...] tab(s), 1 Refill(s), Start Date: 04/11/14 15:59:12 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, 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) Start Date: 04/11/14 Stop Date: 06/15/14 Status: CompletedALPRAZolam 0.5 mg oral tablet 1 tab(s), Oral, BID, PRN for anxiety, # 60 tab(s), 1 Refill(s), Start Date: 07/22 14:26:02 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, 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) Start Date: 12/14/13 Stop Date: 02/14/14 Status: CompletedALPRAZolam 0.5 mg oral tablet 1 tab(s), Oral, BID, PRN for anxiety, X 30 days, # 60 tab(s), 5 Refill(s), Start Date: 07/24/14 10:27:35 CDT Start Date: 07/24/14 Stop Date: 02/07/15 Status: CompletedamLODIPine 10 mg oral tablet 1 tab(s), Oral, Daily, # 90 tab(s), 3 Refill(s), Start Date: 07/24/14 10:24:43 CDT, Pharmacy: [place] [facility] [id number] Start Date: 07/24/14 Stop Date: 07/26/15 Status: CompletedamLODIPine 10 mg oral tablet 1 tab(s), Oral, Daily, # 90 tab(s), 3 Refill(s), Pharmacy: [facility] Start Date: 07/17/13 Stop Date: 07/24/14 Status: DiscontinuedamLODIPine 10 mg oral tablet 1 tab(s), Oral, Daily, X 90 days, # 90 tab(s), 3 Refill(s), Start Date: 7:16:37 CDT, Pharmacy: [facility] Start Date: 07/26/15 Stop Date: 07/29/16 Status: CompletedamLODIPine 10 mg oral tablet 1 tab(s), Oral, Daily, # 90 tab(s), 3 Refill(s), Start Date: 07/29/16 8:16:04 CDT, Pharmacy: [facility] Start Date: 07/29/16 Stop Date: 07/24/17 Status: [...] 3 Refill(s), Start Date: 10:24:56 CDT, Pharmacy: [place] [id number] Start Date: 07/24/14 Stop Date: 07/26/15 Status: Completedbenazepril 40 mg oral tablet 1 tab(s), Oral, Daily, # 90 tab(s), 3 Refill(s), Start Date: 07/17/13 11:11:00 CDT, Pharmacy: [place] [id number] Start Date: 07/17/13 Stop Date: 02/26/14 Status: Completedbenazepril 40 mg oral tablet 1 tab(s), Oral, Daily, X 90 days, # 90 tab(s), 3 Refill(s), Start Date: 7:17:09 CDT, Pharmacy: [place] [id number] Start Date: 07/26/15 Stop Date: 07/29/16 Status: Completedbenazepril 40 mg oral tablet 1 tab(s), Oral, Daily, # 90 tab(s), 3 Refill(s), Start Date: 02/26/14 9:32:13 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, Pharmacy: [place] [id number] Start Date: 02/26/14 Stop Date: 07/24/14 Status: Discontinuedbenazepril 40 mg oral tablet 1 tab(s), Oral, Daily, # 90 tab(s), 3 Refill(s), Start Date: 07/29/16 8:16:05 CDT, Pharmacy: [place] [id number] Start Date: 07/29/16 Stop Date: 07/24/17 Status: OrderedFreestyle Lite Test Strips See Instructions, check blood sugar twice daily dx: R73.01, # 100 EA, 5 Refill(s), Pharmacy: [place] [id number], Supply Special Instructions: check blood sugar twice daily dx: R73.01 Start Date: 07/26/15 Status: OrderedFreestyle Lite Test Strips 100 EA, Subcutaneous, Daily, # 1 boxes, 0 Refill(s), Supply Start Date: 07/26/15 Stop Date: 07/26/15 Status: DiscontinuedFreestyle Test Strips See Instructions, use as directed to check blood sugar 2 times daily DX: R73.01 (non-insulin), # 100 EA, 5 Refill(s), Pharmacy: [facility] [id number], Supply Special Instructions: use as directed to check blood sugar 2 times daily DX: R73.01 (non-insulin) Start Date: 07/26/15 Status: OrderedmetFORMIN 500 mg oral tablet 1 tab(s), Oral, BID, # 180 tab(s), 3 Refill(s), Start Date: 07/24/14 10:25:20 CDT, Pharmacy: [place] [id number] Start Date: 07/24/14 Stop Date: 07/26/15 Status: CompletedmetFORMIN 500 mg oral tablet 1 tab(s), Oral, BID, # 180 tab(s), 3 Refill(s), Pharmacy: [place] [id number] Start Date: 07/17/13 Stop Date: 07/24/14 Status: DiscontinuedmetFORMIN 500 mg oral tablet 1 tab(s), Oral, BID, X 90 days, # 180 tab(s), 3 Refill(s), Start Date: 07/26/15 7:17:34 CDT, Pharmacy: [place] [id number] Start Date: 07/26/15 Stop Date: 12/10/15 Status: CompletedmetFORMIN 500 mg oral tablet 1 tab(s), Oral, BID, X 90 days, # 180 tab(s), 2 Refill(s), Pharmacy: [place] [id number] Start Date: 06/03/16 Stop Date: 07/29/16 Status: CompletedmetFORMIN 500 mg oral tablet 1 tab(s), Oral, BID, # 180 tab(s), 2 Refill(s), Start Date: 07/29/16 8:16:07 CDT , Pharmacy: [place] [id number] Start Date: 07/29/16 Stop Date: 04/25/17 Status: OrderedmetFORMIN 500 mg oral tablet 1 tab(s), Oral, BID, # 180 tab(s), 0 Refill(s) Start Date: 07/13/13 Stop Date: 07/17/13 Status: DiscontinuedmetFORMIN 500 mg oral tablet 1 tab(s), Oral, BID, X 90 days, # 180 tab(s), 0 Refill(s), Start Date: 12/10/15 8:57:26 CDT, Pharmacy: [place] [id number] Start Date: 12/10/15 Stop Date: 03/04/16 Status: CompletedmetFORMIN 500 mg oral tablet 1 tab(s), Oral, BID, # 180 tab(s), 0 Refill(s), Start Date: 03/04/16 15:27:57 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, Pharmacy: [facility] Start Date: 03/04/16 Stop Date: 06/03/16 Status: Completedmetoprolol tartrate 50 mg oral tablet 1 tab(s), Oral, BID, With meals, # 180 tab(s), 3 Refill(s), Pharmacy: [facility] Special Instructions: With meals Start Date: 07/17/13 Stop Date: 07/24/14 Status: Discontinuedmetoprolol tartrate 50 mg oral tablet 1 tab(s), Oral, BID, With meals, X 90 days, # 180 tab(s), 3 Refill(s), Start Date: 07/26/15 7:18:01 CDT, Pharmacy: [facility] Special Instructions: With meals Start Date: 07/26/15 Stop Date: 07/29/16 Status: Completedmetoprolol tartrate 50 mg oral tablet 2 tab(s), Oral, BID, With meals, # 180 tab(s), 0 Refill(s) Special Instructions: With meals Start Date: 07/13/13 Stop Date: 07/17/13 Status: Discontinuedmetoprolol tartrate 50 mg oral tablet 0.5 tab(s), Oral, BID, With meals, # 90 tab(s), 3 Refill(s), Start Date: 8:16:08 CDT, Pharmacy: [place] [id number] Special Instructions: With meals Start Date: 07/29/16 Stop Date: 07/24/17 Status: Orderedmetoprolol tartrate 50 mg oral tablet 1 tab(s), Oral, BID, With meals, # 180 tab(s), 3 Refill(s), Start Date: 10:25:50 CDT, Pharmacy: [facility] Special Instructions: With meals Start Date: 07/24/14 Stop Date: 07/26/15 Status: CompletedPepcid 20 mg oral tablet 1 tab(s), Oral, BID, # 180 tab(s), 0 Refill(s), Start Date: 07/29/16 8:16:06 CDT , Pharmacy: [place] [id number] Start Date: 07/29/16 Status: OrderedPepcid 20 mg oral tablet 1 tab(s), Oral, BID, # 180 tab(s), 0 Refill(s), Start Date: 07/24/14 10:28:00 CDT, other reason (Rx) Start Date: 07/24/14 Stop Date: 07/29/16 Status: Completedsimvastatin 40 mg oral tablet 1 tab(s), Oral, HS, # 90 tab(s), 3 Refill(s), Pharmacy: [place] [id number] Start Date: 07/17/13 Stop Date: 07/24/14 Status: Discontinuedsimvastatin 40 mg oral tablet 1 tab(s), Oral, HS, X 90 days, # 90 tab(s), 3 Refill(s), Start Date: 07/26/15 7: 18:31 CDT, Pharmacy: [place] [id number] Start Date: 07/26/15 Stop Date: 07/29/16 Status: Completedsimvastatin 40 mg oral tablet 1 tab(s), Oral, HS, # 30 tab(s), 0 Refill(s) Start Date: 07/13/13 Stop Date: 07/17/13 Status: Discontinuedsimvastatin 40 mg oral tablet 1 tab(s), Oral, HS, # 90 tab(s), 3 Refill(s), Start Date: 07/29/16 8:16:08 CDT, Pharmacy: [place] [id number] Start Date: 07/29/16 Stop Date: 07/24/17 Status: Orderedsimvastatin 40 mg oral tablet 1 tab(s), Oral, HS, # 90 tab(s), 3 Refill(s), Start Date: 07/24/14 10:25:58 CDT , Pharmacy: [facility] Start Date: 07/24/14 Stop Date: 07/26/15 Status: Completedterazosin 10 mg oral capsule 1 cap(s), Oral, HS, # 90 cap(s), 3 Refill(s), Start Date: 07/17/13 11:11:00 CDT , Pharmacy: [place] [id number] Start Date: 07/17/13 Stop Date: 07/13/14 Status: Completedterazosin 10 mg oral capsule 1 cap(s), Oral, HS, X 90 days, # 90 cap(s), 3 Refill(s), Start Date: 07/26/15 7: 18:55 CDT, Pharmacy: [facility] [place] [id number] Start Date: 07/26/15 Stop Date: 07/29/16 Status: Completedterazosin 10 mg oral capsule 1 cap(s), Oral, HS, # 90 cap(s), 3 Refill(s), Start Date: 07/13/14 10:00:35 CDT , Pharmacy: [facility] Start Date: 07/13/14 Stop Date: 07/24/14 Status: [...] Refill(s), Start Date: 07/29/16 8:16:09 CDT, Pharmacy: [facility] Start Date: 07/29/16 Stop Date: 07/24/17 Status: Orderedterazosin 10 mg oral capsule 1 cap(s), Oral, HS, X 90 days, # 90 cap(s), 3 Refill(s), Start Date: 07/24/14 10 :26:14 CDT, Pharmacy: [facility] Start Date: 07/24/14 Stop Date: 07/26/15 Status: Completed Results No data available for this section Immunizations No data available for this section Procedures Procedure Date Related Diagnosis Body Site Thyroidectomy 08/1994 Cyst Removal1 12/1993 Colonoscopy2 [id number] 1995, June 2001, July 2006, July 2009 Social History No data available for this section Assessment and Plan No data available for this section
[2016-08-28] MEDS ORDERED: RINGERS SOLUTION,LACTATED 1,000 ML IV ONE (11:13)
[2016-08-28 14:19] VITALS: BP 162/83
== END 2016-08-28 10:41 | disposition home or self-care (01) ==
LOC: AMB 10:40
PROVIDERS: ATTEND Urology
PROC: 0V903ZX Drainage of Prostate, Percutaneous Approach, Diagnostic (ICD-10-PCS; principal; 2016-08-28 12:00)
DX: C61 Malignant neoplasm of prostate (principal); I10 Essential (primary) hypertension; E78.00 Pure hypercholesterolemia, unspecified; E21.3 Hyperparathyroidism, unspecified; F41.9 Anxiety disorder, unspecified; E66.9 Obesity, unspecified; Z68.35 Body mass index [BMI] 35.0-35.9, adult